=== PATIENT | female | born 1985 | race American Indian/Alaskan Native ===

== ENCOUNTER 2019-10-24 09:24 | Emergency (ER) | payer MEDICAID ==
[2019-10-24 10:50] LABS: Bacteria,Urine 2+ /HPF (Negative); Bilirubin,Urine NEG (Negative); Blood,Urine NEG (Negative); Color,Urine Yellow (Yellow); Mucus,Urine 1+ /HPF; Protein,Urine <15 mg/dL mg/dL (Negative)
[2019-10-24 10:52] LABS: HCG Qualitative,Urine Negative (Negative)
--- NOTE | 2019-10-24 11:11 | Emergency Department Report ---
ED Abdominal Pain HPI - General Chief Complaint: Abdominal Pain Stated Complaint: ABD PAIN Time Seen by Provider: 10/24/19 10:42 Source: patient Mode of arrival: Ambulatory Limitations: No Limitations - History of Present Illness Initial Comments: 34-year-old -[place] female patient complains of lower abdominal pain starting yesterday morning. She denies any fever/chills/bodyaches/sweats, dysuria/hematuria, vaginal discharge/bleeding, melena/hematochezia, or nausea/vomiting/diarrhea. She rates her pain as 8/10 in severity and describes it as a stabbing sensation. She states the pain is intermittent and it lasts for about 30 minutes at a time. She denies anything making the pain better or worse. -: Sudden - Related Data Previous Rx's Medication Instructions Recorded Last Taken Type Acetaminophen/Codeine [Tylenol 1 tab PO Q8H PRN #8 tab 10/24/19 Unknown Rx /Codeine # 3 tab] Ibuprofen [Motrin 800 MG tab] 800 mg PO Q8HR PRN #21 tablet 10/24/19 Unknown Rx Allergies Allergy/AdvReac Type Severity Reaction Status Date / Time No Known Allergies Allergy Unverified 10/24/19 09:25 ED Review of Systems ROS: Stated complaint: ABD PAIN Other details as noted in HPI Comment: All other systems reviewed and negative Gastrointestinal: as per HPI ED Past Medical Hx - Past Medical History Previous Medical History?: No - Surgical History Past Surgical History?: No - Social History Smoking Status: Never Smoker Substance Use Type: None - Medications Home Medications: Home Medications Medication Instructions Recorded Confirmed Last Taken Type Acetaminophen/Codeine [Tylenol 1 tab PO Q8H PRN #8 tab 10/24/19 Unknown Rx /Codeine # 3 tab] Ibuprofen [Motrin 800 MG tab] 800 mg PO Q8HR PRN #21 tablet 10/24/19 Unknown Rx ED Physical Exam - General Limitations: No Limitations General appearance: alert, in no apparent distress - Head Head exam: Present: atraumatic, normocephalic - Eye Eye exam: Present: normal appearance - ENT ENT exam: Present: mucous membranes moist - Neck Neck exam: Present: normal inspection - Respiratory Respiratory exam: Present: normal lung sounds bilaterally. Absent: respiratory distress - Cardiovascular Cardiovascular Exam: Present: regular rate, normal rhythm. Absent: systolic murmur, diastolic murmur, rubs, gallop - GI/Abdominal GI/Abdominal exam: Present: soft, tenderness, rebound, normal bowel sounds, mass (palpated in the right suprapubic region). Absent: distended, rigid, pulsatile mass - Rectal Rectal exam: Present: deferred - Extremities Exam Extremities exam: Present: normal inspection - Back Exam Back exam: Present: normal inspection. Absent: CVA tenderness (L) - Neurological Exam Neurological exam: Present: alert, oriented X3 - Psychiatric Psychiatric exam: Present: normal affect, normal mood - Skin Skin exam: Present: warm, dry, intact, normal color. Absent: rash ED Course Vital Signs 10/24/19 09:28 Temperature 97.9 F Pulse Rate 95 H Respiratory 18 Rate Blood Pressure 126/82 O2 Sat by Pulse 97 Oximetry ED Medical Decision Making - Lab Data Result diagrams: 10/24/19 11:30 10/24/19 11:30 - Radiology Data Radiology results: report reviewed CT ABDOMEN AND PELVIS WITH CONTRAST HISTORY: RLQ pain, suprapubic mass COMPARISON: None. TECHNIQUE: CT images of the abdomen and pelvis were obtained following administration of intravenous contrast. Oral contrast was not utilized which limits evaluation of the gastrointestinal tract. All CT scans at this location are performed using CT dose reduction for ALARA by means of automated exposure control. CONTRAST: 100 ml of intravenous contrast administered. FINDINGS: Limited evaluation of the lung bases shows a benign-appearing left lower lobe calcified granuloma. There is heterogenous appearance of the uterus which is enlarged. An 8.2 x 8.5 x 9.2 cm partially defined round slightly hyperdense lesion within the uterine fundus is noted. This could explain the reported suprapubic mass. An intrauterine device is noted which is displaced posteriorly and to the left. One of the horizontal arms of this intrauterine device appears to extend beyond the confines of the uterus. This is best appreciated on coronal image 63 and axial image 129. The spleen contains a few calcifications, consistent with prior granulomatous exposure. The liver, kidneys, pancreas, adrenal glands, and gallbladder are unremarkable. G astrointestinal tract shows no evidence of bowel wall thickening or pathologic distention. There are no pathologically enlarged lymph nodes. No free intraperitoneal gas or fluid. The appendix is visualized and is normal in appearance. Urinary bladder is unremarkable. Osseous structures show no evidence of acute fracture or aggressive osseous destructive lesion. IMPRESSION: The uterus is enlarged due to a 9.2 cm intramural mass within the anterior right uterine fundus, possibly a fibroid. There is resultant mass effect and an intrauterine device is displaced towards the posterior left aspect of the uterus. One of the horizontal arms of this intrauterine device appears to extend outside the confines of the uterus and is suspected to have eroded through the uterus. - Medical Decision Making 34-year-old -[place] female patient complains of lower abdominal pain starting yesterday morning. Vitals are normal. WBCs are normal. UA shows mild UTI. CT abdomen shows 9.2 cm uterine mass, likely a fibroid and displacement of patient's Mirena device with one arm of the Mirena eroding through the uterus. Discussed patient and CT results with Dr. Guzman, [employer]-states patient is stable for outpatient follow-up on her already appointed date of November 14 with her [employer]. Discussed very strict return precautions in detail with patient who verbalizes understanding. Critical care attestation.: If time is entered above; I have spent that time in minutes in the direct care of this critically ill patient, excluding procedure time. ED Disposition Clinical Impression: Uterine mass IUD complication Qualifiers: Device complication type: mechanical Mechanical complication type: displacement Encounter type: initial encounter Qualified Code(s): T83.32XA - Displacement of intrauterine contraceptive device, initial encounter Disposition: - TO HOME OR SELFCARE Is pt being admited?: No Condition: Stable Instructions: Uterine Fibroids (ED) Additional Instructions: Please follow-up with your [employer] as scheduled 11/14/2019, sooner if needed. If you develop any new or worsening symptoms return to the emergency department Prescriptions: Ibuprofen [Motrin 800 MG tab] 800 mg PO Q8HR PRN #21 tablet PRN Reason: Pain, Moderate (4-6) Acetaminophen/Codeine [Tylenol /Codeine # 3 tab] 1 tab PO Q8H PRN #8 tab PRN Reason: Pain , Severe (7-10)
[2019-10-24 11:56] LABS: Basophils % (Auto) 0.5 % (0.0-1.8); Eosinophils # (Auto) 0.1 K/mm3 (0.0-0.4); Eosinophils % (Auto) 0.9 % (0.0-4.3); Hematocrit 37.7 % (30.3-42.9); Hemoglobin 12.3 gm/dl (10.1-14.3); Lymphocytes # (Auto) 1.9 K/mm3 (1.2-5.4); Lymphocytes % (Auto) 28.8 % (13.4-35.0); Mean Corpuscular HGB Conc 33 % (30-34); Mean Corpuscular Volume 86 fl (79-97); Monocytes # (Auto) 0.8 K/mm3 (0.0-0.8); Monocytes % (Auto) 11.8 % (0.0-7.3); Platelet Count 176 K/mm3 (140-440); Red Blood Count 4.37 M/mm3 (3.65-5.03); Red Cell Distribution Width 13.9 % (13.2-15.2)
[2019-10-24 12:24] LABS: Alanine Aminotransferase 6 units/L (7-56); Albumin 3.9 g/dL (3.9-5); BUN/Creatinine Ratio 13; Blood Urea Nitrogen 12 mg/dL (7-17); Hemolysis Index 2
--- NOTE | 2019-10-24 14:04 | Cat Scan Report ---
CT ABDOMEN AND PELVIS WITH CONTRAST HISTORY: RLQ pain, suprapubic mass COMPARISON: None. TECHNIQUE: CT images of the abdomen and pelvis were obtained following administration of intravenous contrast. Oral contrast was not utilized which limits evaluation of the gastrointestinal tract. All C T scans at this location are performed using CT dose reduction for ALARA by means of automated exposu re control. CONTRAST: 100 ml of intravenous contrast administered. FINDINGS: Limited evaluation of the lung bases shows a benign-appearing left lower lobe calcified granuloma. There is heterogenous appearance of the uterus which is enlarged. An 8.2 x 8.5 x 9.2 cm partially def ined round slightly hyperdense lesion within the uterine fundus is noted. This could explain the repo rted suprapubic mass. An intrauterine device is noted which is displaced posteriorly and to the left. One of the horizontal arms of this intrauterine device appears to extend beyond the confines of the uterus. This is best appreciated on coronal image 63 and axial image 129. The spleen contains a few calcifications, consistent with prior granulomatous exposure. The liver, k idneys, pancreas, adrenal glands, and gallbladder are unremarkable. Gastrointestinal tract shows no e vidence of bowel wall thickening or pathologic distention. There are no pathologically enlarged lymph nodes. No free intraperitoneal gas or fluid. The appendix is visualized and is normal in appearance. Urinary bladder is unremarkable. Osseous structures show no evidence of acute fracture or aggressive osseous destructive lesion. IMPRESSION: The uterus is enlarged due to a 9.2 cm intramural mass within the anterior right uterine fundus, poss ibly a fibroid. There is resultant mass effect and an intrauterine device is displaced towards the po sterior left aspect of the uterus. One of the horizontal arms of this intrauterine device appears to extend outside the confines of the uterus and is suspected to have eroded through the uterus. Signer Name: Jamie Bergeron MD Signed: 10/24/2019 2:00 PM Workstation Name: [id number]
[2019-10-24 15:21] VITALS: BP 124/80
== END 2019-10-24 15:19 | disposition home or self-care (01) ==
LOC: ED 09:24
DX: T83.32XA Displacement of intrauterine contraceptive device, initial encounter (principal); N85.8 Other specified noninflammatory disorders of uterus; Y92.9 Unspecified place or not applicable
CPT/HCPCS: 36415; 74177; 80053; 81001; 81025; 83690; 85025; 99284; Q9967